=== PATIENT | male | born 1930 | race Caucasian/White ===

== ENCOUNTER 2017-07-30 15:20 | Emergency (ER) | payer MEDICARE, OTHER ==
--- NOTE | 2017-07-30 15:46 | EDM.PDOC ---
ED HPI GENERAL MEDICAL PROBLEM - General Chief Complaint: Head Injury Stated Complaint: head injury Time Seen by Provider: 07/30/17 15:20 Source of Information: Reports: Patient, Family History Limitations: Reports: Altered Mental Status - History of Present Illness INITIAL COMMENTS - FREE TEXT/NARRATIVE: 87 y.o.w.m with a h/o dizziness came the the ed after he fell out of his wheelchair, which broke. Pt complaint about a light tender post kelley. No N/V/ D. Pt is a poor historian. No family member is in the room. No other acute medical issues at this time. 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 ) Improves with: Reports: Rest Worsens with: Reports: Movement Context: Reports: Other (was dizzy before he fell) Headache Pain Score (Numeric/FACES): 5 - Related Data Allergies Allergy/AdvReac Type Severity Reaction Status Date / Time No Known Allergies Allergy Verified 07/30/17 15:39 Home Meds: Home Meds Levothyroxine 175 mcg PO ACBRK 09/20/16 [History] Metoprolol Succinate 50 mg PO DAILY 09/20/16 [History] amLODIPine [Norvasc] 10 mg PO BEDTIME 09/20/16 [History] atorvaSTATin [Lipitor] 10 mg PO BEDTIME 09/20/16 [History] Meclizine [Antivert] 25 mg PO Q6H PRN #20 tab.chew 07/30/17 [Rx] Past Medical History HEENT History: Reports: Cataract Cardiovascular History: Reports: [place] - Past Surgical History HEENT Surgical History: Reports: Cataract Surgery Social & Family History - Tobacco Use Smoking Status *Q: Never Smoker Used Tobacco, but Quit: Yes Month Tobacco Last Used: nov Second Hand Smoke Exposure: No - Caffeine Use Caffeine Use: Reports: Coffee - Alcohol Use Days Per Week of Alcohol Use: 7 Number of Drinks Per Day: 3 Total Drinks Per Week: 21 - Recreational Drug Use Recreational Drug Use: No ED ROS GENERAL - Review of Systems Review Of Systems: See Below Constitutional: Reports: No Symptoms HEENT: Reports: No Symptoms Respiratory: Reports: No Symptoms Cardiovascular: Reports: No Symptoms Endocrine: Reports: No Symptoms GI/Abdominal: Reports: No Symptoms : Reports: No Symptoms Musculoskeletal: Reports: No Symptoms Skin: Reports: No Symptoms Neurological: Reports: Dizziness Psychiatric: Reports: No Symptoms Hematologic/Lymphatic: Reports: No Symptoms Immunologic: Reports: No Symptoms ED EXAM, HEAD INJURY - Physical Exam Exam: See Below Exam Limited By: Altered Mental Status General Appearance: Alert, WD/WN, Mild Distress Head: Scalp Tenderness (posteriorly) Eyes: Bilateral Eye: Normal Inspection Ears: Normal External Exam Nose: Normal Inspection Throat/Mouth: Normal Inspection, Normal Lips Neck: Non-Tender, Full Range of Motion, Normal Alignment, Normal Inspection Respiratory: No Respiratory Distress, Lungs Clear Cardiovascular: Normal Peripheral Pulses, Regular Rate, Rhythm GI/Abdominal Exam: Normal Bowel Sounds (Male) Exam: Deferred Rectal (Males) Exam: Deferred Back Exam: Normal Inspection Extremities: Normal Inspection, Normal Range of Motion 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 Pt complaint about a light tender post kelley. No N/V/ D. Pt is a poor historian. No family member is in the room. No other acute medical issues at this time. BP 146/76 HR 111 Pulse ox 100 RR 16 Temp 35.6 Pt' s this year. PE: WNWD WM, NAD with post kelley tenderness and bilat Nystagmus Imaging: Head gen atrophy, no bleed Labs: WBC 8.7 HGB 14.4 Na 133 K 3.2 BUN 24 Cr. 1.4 INR 1.03 UA neg Impression: Hypokalemia, CRI, Gen brain atrophy. Vertigo Tx: Antivert Reexam: Pt was ambulating fine in the ed. Pt's Granddaughter arrived. Plan: D/C with instructions Last Recorded V/S: Last Vital Signs Temp 35.9 C 07/30/17 15:41 Pulse 82 07/30/17 19:19 Resp 20 07/30/17 19:19 BP 135/92 H 07/30/17 19:19 Pulse Ox 100 07/30/17 19:19 - Orders/Labs/Meds Orders: Active Orders 24 hr Category Date Time Status EKG Documentation Completion [RC] ASDIRECTED Care 07/30/17 16:15 Active CDIFF TOXIN A+B GROUP [OP] Stat Lab 07/30/17 19:07 Received CULTURE-STOOL [MREF] Stat Lab 07/30/17 19:07 Received HELICOBACTER PYLORI AG, STOOL [REF] Stat Lab 07/30/17 19:07 Received STOOL PH [MREF] Stat Lab 07/30/17 19:07 Received STOOL REDUCING SUBSTANCES [MREF] Stat Lab 07/30/17 19:07 Received WBC, Stool Send Out [LACTOFERRIN, FECAL BY CASTILLO] [REF Lab 07/30/17 19:07 Received ] Stat EKG 12 Lead [EK] Routine Ther 07/30/17 16:14 Ordered Labs: Laboratory Tests 07/30/17 07/30/17 07/30/17 Range/Units 15:50 15:50 15:50 WBC 9.7 (4.5-12.0) X10-3/uL RBC 4.36 (4.30-5.75) x10(6)uL Hgb 14.4 (11.5-15.5) g/dL Hct 41.9 (30.0-51.3) % MCV 96.2 H (80-96) fL MCH 33.0 (27.7-33.6) pg MCHC 34.3 (32.2-35.4) g/dL RDW 12.6 (11.5-15.5) % Plt Count 201 (125-369) X10(3)uL MPV 7.1 L (7.4-10.4) fL Add Manual Diff Yes Neutrophils % (Manual) 71 (46-82) % Band Neutrophils % 8 H (0-6) % Lymphocytes % (Manual) 11 L (13-37) % Monocytes % (Manual) 10 (4-12) % PT 10.4 (8.7-11.1) INR 1.03 (0.89-1.13) Sodium 134 L (135-145) mmol/L Potassium 3.2 L (3.5-5.3) mmol/L Chloride 103 (100-110) mmol/L Carbon Dioxide 22 L (23-29) mmol/L BUN 24 H (8-23) mg/dL Creatinine 1.4 H (0.6-1.3) mg/dL Est Cr Clr Drug Dosing 35.41 mL/min Estimated GFR (MDRD) 48 L (>60) BUN/Creatinine Ratio 17.1 (9-20) Glucose 129 H (80-116) mg/dL Calcium 9.0 (8.6-10.2) mg/dL Urine Color (YELLOW) Urine Appearance (CLEAR) Urine pH (5.0-6.5) Ur Specific [place] (1.010-1.025) Urine Protein (NEGATIVE) mg/dL Urine Glucose (UA) (NEGATIVE) mg/dL Urine Ketones (NEGATIVE) mg/dL Urine Occult Blood (NEGATIVE) Urine Nitrite (NEGATIVE) Urine Bilirubin (NEGATIVE) Urine Urobilinogen (NEGATIVE) mg/dL Ur Leukocyte Esterase (NEGATIVE) Urine RBC (0) Urine WBC (0) Ur Squamous Epith Cells (NS,R,O) Urine Bacteria (NS) Hyaline Casts (NS) Urine Mucus (NS) Urine Sperm (NS) 07/30/17 Range/Units 18:20 WBC (4.5-12.0) X10-3/uL RBC (4.30-5.75) x10(6)uL Hgb (11.5-15.5) g/dL Hct (30.0-51.3) % MCV (80-96) fL MCH (27.7-33.6) pg MCHC (32.2-35.4) g/dL RDW (11.5-15.5) % Plt Count (125-369) X10(3)uL MPV (7.4-10.4) fL Add Manual Diff Neutrophils % (Manual) (46-82) % Band Neutrophils % (0-6) % Lymphocytes % (Manual) (13-37) % Monocytes % (Manual) (4-12) % PT (8.7-11.1) INR (0.89-1.13) Sodium (135-145) mmol/L Potassium (3.5-5.3) mmol/L Chloride (100-110) mmol/L Carbon Dioxide (23-29) mmol/L BUN (8-23) mg/dL Creatinine (0.6-1.3) mg/dL Est Cr Clr Drug Dosing mL/min Estimated GFR (MDRD) (>60) BUN/Creatinine Ratio (9-20) Glucose (80-116) mg/dL Calcium (8.6-10.2) mg/dL Urine Color Yellow (YELLOW) Urine Appearance Clear (CLEAR) Urine pH 5.0 (5.0-6.5) Ur Specific [place] 1.020 (1.010-1.025) Urine Protein Negative (NEGATIVE) mg/dL Urine Glucose (UA) Normal (NEGATIVE) mg/dL Urine Ketones 50 H (NEGATIVE) mg/dL Urine Occult Blood Moderate H (NEGATIVE) Urine Nitrite Negative (NEGATIVE) Urine Bilirubin Negative (NEGATIVE) Urine Urobilinogen Normal (NEGATIVE) mg/dL Ur Leukocyte Esterase Negative (NEGATIVE) Urine RBC 5-10 (0) Urine WBC 0-5 (0) Ur Squamous Epith Cells Moderate H (NS,R,O) Urine Bacteria Moderate H (NS) Hyaline Casts Moderate H (NS) Urine Mucus Moderate H (NS) Urine Sperm Moderate H (NS) Meds: Medications Discontinued Medications Generic Name Dose Route Start Last Admin Trade Name Freq PRN Reason Stop Dose Admin Meclizine HCl 50 mg 07/30/17 19:01 07/30/17 19:14 Antivert PO 07/30/17 19:02 50 mg ONETIME STA Administration Departure - Departure Time of Disposition: 19:14 Disposition: Home, Self-Care 01 Condition: Good Clinical Impression: Vertigo Fall Qualifiers: Encounter type: initial encounter Qualified Code(s): W19.XXXA - Unspecified fall, initial encounter Frequent loose stools Qualifiers: Diarrhea type: presumed infectious Qualified Code(s): A09 - Infectious gastroenteritis and colitis, unspecified - Discharge Information Prescriptions: Meclizine [Antivert] 25 mg PO Q6H PRN #20 tab.chew PRN Reason: dizzy Referrals: Kel Goldstein MD [Primary Care Provider] - Forms: ED Department Discharge Additional Instructions: Please take antivert for dizziness, Imodium for constipation, please increase water intake, please follow up in 4-5 days with your PMD, please come back if your symptoms get worse acutely - My Orders Last 24 Hours: My Active Orders 07/30/17 16:14 EKG 12 Lead [EK] Routine 07/30/17 16:15 EKG Documentation Completion [RC] ASDIRECTED 07/30/17 19:07 CDIFF TOXIN A+B GROUP [OP] Stat CULTURE-STOOL [MREF] Stat HELICOBACTER PYLORI AG, STOOL [REF] Stat STOOL PH [MREF] Stat STOOL REDUCING SUBSTANCES [MREF] Stat WBC, Stool Send Out [LACTOFERRIN, FECAL BY CASTILLO] [REF] Stat - Assessment/Plan Last 24 Hours: My Active Orders 07/30/17 16:14 EKG 12 Lead [EK] Routine 07/30/17 16:15 EKG Documentation Completion [RC] ASDIRECTED 07/30/17 19:07 CDIFF TOXIN A+B GROUP [OP] Stat CULTURE-STOOL [MREF] Stat HELICOBACTER PYLORI AG, STOOL [REF] Stat STOOL PH [MREF] Stat STOOL REDUCING SUBSTANCES [MREF] Stat WBC, Stool Send Out [LACTOFERRIN, FECAL BY CASTILLO] [REF] Stat
[2017-07-30] MEDS ORDERED: Meclizine 25 MG Tab PO STA (19:01)
[2017-07-30 19:20] VITALS: BP 135/92
--- NOTE | 2017-07-31 09:14 | CT ---
INDICATION: Fell, hit back of head due to dizziness. CT HEAD WITHOUT CONTRAST: Serial contiguous 2.5 and 5-mm sections were obtained through the brain without contrast 07/30/2017 and compared with 2015. Total Exam DLP = 949.36 mGy-cm. Extensive arterial calcifications are noted in the vertebral, basilar, and internal carotid arteries. 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 Calcifications are noted in the basal ganglial area, most likely not important clinically. While there is no shift of midline structures, there is increased prominence of the lateral and third ventricles, compatible with progressive central atrophy. There are some minimal periventricular areas of decreased density, compatible with mild microvascular disease. An additional low-density abnormality is seen in the right frontal white matter, likely due to minimal subcortical infarct also. No evidence of a bleeding site or hematoma was identified. There are again noted some areas of thickening of linings and/or partial opacification and ethmoidal air cells, especially on the left, unchanged and likely due to retention cysts or other minimal chronic disease. No finding to suggest acute sinusitis was seen. The mastoid air cells were well aerated. Degenerative changes are noted at the atlantoodontoid joint. No cranial fracture site was seen. IMPRESSION: 1. No acute intracranial abnormality. 2. Cerebrovascular disease with arterial calcifications. 3. Progressive central atrophy. 4. Minimal microvascular disease type changes in the white matter, although other cause of leukoencephalopathy cannot be excluded. 5. Appearance of cerebellar atrophy, especially on the right with an area of what appears to be encephalomalacia on the right. 6. Minimal findings in the ethmoidal air cells, likely not of clinical significance. Report called to Dr. Marks on 07/30/2017 at 1625 hours. [facility]
--- NOTE | 2017-07-31 09:19 | CT ---
INDICATION: Fell, hit back of head due to dizziness. CT NECK: Spiral 2.5-mm axial sections were obtained through the cervical spine with sagittal and coronal reconstructions. The apical lungs visualized showed no definite active infiltrate or effusion. Total Exam DLP = 448.65 mGy-cm. Degenerative changes are noted at the atlantoodontoid joint and appear moderately severe to severe. Demineralization is suggested, compatible with osteoporosis or osteomalacia and should be correlated clinically. Evidence of degenerative disk disease is noted with minimal anterolisthesis at C3-4, more severe degenerative disk disease is noted at C4-5, and then even more severe at C5-6 and C6-7 to a slightly lesser degree than C5-6. Impingement on the neural foramina is suggested at C3-4, C4-5, C5-6, and C6-7. A definite acute fracture or dislocation was not identified, with the odontoid appearing intact and also the atlas and axis appearing intact. Prevertebral space appears to be normal. Hypertrophic degenerative changes are noted at the lateral masses, most prominently on the right at C3-4 and to a lesser extent at C3-4 on the left, and then more prominently at C4-5, especially on the left. Changes are also noted at the lateral masses of C5-6 and relatively minimally at C6-7. By far the most severe lateral mass degenerative hypertrophic changes are noted at C4- 5 on the left. IMPRESSION: Degenerative changes and disk disease, possible osteoporosis, no fracture or dislocation. Report was called to Dr. Marks at 1625 hours, 07/30/2017. [facility]
== END 2017-07-30 19:20 | disposition home or self-care (01) ==
LOC: FB.ED 15:20
DX: R42 Dizziness and giddiness (principal); E87.6 Hypokalemia; G31.9 Degenerative disease of nervous system, unspecified; R19.7 Diarrhea, unspecified; Z87.891 Personal history of nicotine dependence; Z79.899 Other long term (current) drug therapy; W05.0XXA Fall from non-moving wheelchair, initial encounter
CPT/HCPCS: 36415; 70450; 72125; 80048; 81001; 83630; 83986; 84376; 85025; 85610; 87015; 87045; 87046; 87324; 87338; 87899; 93005; 99284; A9270

== ENCOUNTER 2017-09-02 19:51 | Inpatient (IN) | payer MEDICARE, OTHER ==
--- NOTE | 2017-09-02 20:01 | EDM.PDOC ---
ED HPI GENERAL MEDICAL PROBLEM - General Chief Complaint: Chest Pain Stated Complaint: CHEST PAIN Time Seen by Provider: 09/02/17 19:51 Source of Information: Reports: Patient, EMS History Limitations: Reports: Intoxication - History of Present Illness INITIAL COMMENTS - FREE TEXT/NARRATIVE: 87 years old w m, came to the ed due to chest pain and a rapid heart rate. As the EMS arrived at the scene, pt had a SVT with a rate of 160 BPM. 6 mg of adenosin were given and the pt converted to NSR on arrival to the ed. CP subsided on arrival to to the ed. No N/V/D, pt is a poor historian, no family member is present. Pt denied any other acute medical issues. BP 127/67 Pulse 109 RR 17 Pulse ox 96% on RA. 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 Pain Score (Numeric/FACES): 0 - Related Data Allergies Allergy/AdvReac Type Severity Reaction Status Date / Time No Known Allergies Allergy Verified 09/02/17 20:02 Home Meds: Home Meds Metoprolol Succinate 50 mg PO BEDTIME 09/20/16 [History] Isosorbide Mononitrate [Isosorbide Mononitrate ER] 60 mg PO BEDTIME 09/02/17 [ History] amLODIPine Besylate/Benazepril [Amlodipine-Benazepril 10-20 MG] 1 cap PO BEDTIME 09/02/17 [History] Levothyroxine 175 mcg PO BEDTIME 09/03/17 [History] Past Medical History HEENT History: Reports: Cataract Other HEENT History: wears glasses Cardiovascular History: Reports: [place] Genitourinary History: Reports: Prostate Disorder Endocrine/Metabolic History: Reports: Other (See Below) Other Endocrine/Metabolic History: takes thyroid pill Oncologic (Cancer) History: Reports: Prostate - Infectious Disease History Infectious Disease History: Reports: Chicken Pox, Measles, Mumps - Past Surgical History HEENT Surgical History: Reports: Cataract Surgery Social & Family History - Tobacco Use Smoking Status *Q: Never Smoker Used Tobacco, but Quit: Yes Month Tobacco Last Used: nov Second Hand Smoke Exposure: No - Caffeine Use Caffeine Use: Reports: Coffee - Alcohol Use Days Per Week of Alcohol Use: 7 Number of Drinks Per Day: 3 Total Drinks Per Week: 21 - Recreational Drug Use Recreational Drug Use: No ED ROS GENERAL - Review of Systems Review Of Systems: Unable To Obtain (intoxicated) ED EXAM, GENERAL - Physical Exam Exam: See Below Exam Limited By: Intoxication General Appearance: Alert, WD/WN, Mild Distress Eye Exam: Bilateral Eye: Normal Inspection Ears: Normal External Exam Ear Exam: Bilateral Ear: Auricle Normal Nose: Normal Inspection, Other (dry mucosal membrane) Throat/Mouth: Normal Inspection, Normal Lips, No Airway Compromise, Other (dry mucosal membrane) Head: Atraumatic, Normocephalic Neck: Normal Inspection, Supple, Non-Tender, Full Range of Motion Respiratory/Chest: No Respiratory Distress, Lungs Clear, Normal Breath Sounds, Other (intermittand dry cough) Cardiovascular: Normal Peripheral Pulses GI/Abdominal: Normal Bowel Sounds (Male) Exam: Deferred Rectal (Males) Exam: Deferred Back Exam: Normal Inspection Extremities: Normal Inspection, Normal Range of Motion, Non-Tender, No Pedal Edema Neurological: Alert, Oriented, CN II-XII Intact, Normal Cognition, Normal Gait Psychiatric: Normal Affect, Depressed Mood (is crying off/on) Skin Exam: Warm, Dry, Intact, Normal Color, No Rash Lymphatic: No Adenopathy EKG INTERPRETATION EKG Date: 09/02/17 Time: 20:10 Rhythm: NSR Rate (Beats/Min): 108 [place]: Normal P-Wave: Present QRS: Normal ST-T: Normal QT: Prolonged (523) Comparison: NA - No Prior EKG Course - Vital Signs Text/Narrative:: 87 years old w m, came to the ed due to chest pain and a rapid heart rate. As the EMS arrived at the scene, pt had a SVT with a rate of 160 BPM. 6 mg of adenosin were given and the pt converted to NSR on arrival to the ed. CP subsided on arrival to to the ed. No N/V/D, pt is a poor historian, no family member is present. Pt denied any other acute medical issues. BP 127/67 Pulse 109 RR 17 Pulse ox 96% on RA. PE: WNWD W M NAD Dry mucosal membranes Labs: WBC 17K Mg 1.5 Troponin Nl, TSH 0.19 (low) BNP 1200 ECG: Prolonged QT interval Imaging: CXR NADm, no CHF, official report is pending Impression: SVT (converted to NSR BAGGAGE PORTER with Adenosin 6MG) Hyperthyroidism, WBC elevated (no left shift, NL lactic acid)), BNP elevated (not in CHF), prolonged QT interval (525). Hypomagnesemia. Tx: ASA, Levothyrid, NS, Mg. 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 Sheehan: Accepted the patient for admission to to M/ S tele Plan: Admit to [facility] Last Recorded V/S: Last Vital Signs Temp 36.4 C 09/03/17 15:55 Pulse 73 09/03/17 15:55 Resp 18 09/03/17 15:55 BP 158/67 H 09/03/17 15:55 Pulse Ox 100 09/03/17 15:55 - Orders/Labs/Meds Orders: Active Orders 24 hr Category Date Time Status Patient Status [ADT] Routine ADT 09/02/17 21:52 Active Intake and Output [RC] 06,14,22 Care 09/02/17 21:55 Active Oxygen Therapy [RC] PRN Care 09/02/17 21:52 Active Up With Assistance [RC] ASDIRECTED Care 09/02/17 21:52 Active Vital Signs [RC] 04,08,12,16,20,00 Care 09/02/17 21:52 Active CULTURE BLOOD [BC] Stat Lab 09/02/17 20:56 Received Isosorbide Mononitrate [Imdur] Med 09/03/17 21:00 Active 60 mg PO BEDTIME Metoprolol Succinate [Toprol XL] Med 09/03/17 21:00 Active 50 mg PO BEDTIME Sodium Chloride 0.9% [Normal Saline] 1,000 ml Med 09/02/17 20:15 Active IV ASDIRECTED Sodium Chloride 0.9% [Saline Flush] Med 09/02/17 20:01 Active 10 ml FLUSH ASDIRECTED PRN Vancomycin [Vancocin 125 MG/5 ML Soln] Med 09/03/17 09:00 Active 125 mg PO QID Peripheral IV Insertion Adult [OM.PC] Routine Oth 09/02/17 20:01 Ordered Resuscitation Status Routine Resus Stat 09/02/17 21:52 Ordered EKG 12 Lead [EK] Routine Ther 09/02/17 20:01 Ordered EKG 12 Lead [EK] Routine Ther 09/03/17 08:22 Ordered Medication Orders Amlodipine Besylate (Norvasc) 10 mg PO BEDTIME [facility] Aspirin (Ecotrin) 325 mg PO DAILY NATHEN Last Admin: 09/03/17 13:06 Dose: 325 mg Benazepril HCl (Lotensin) 20 mg PO BEDTIME [facility] Sodium Chloride (Normal Saline) 1,000 mls @ 125 mls/hr IV ASDIRECTED NATHEN Last Admin: 09/03/17 12:38 Dose: 125 mls/hr Infusion: 09/03/17 12:38 Dose: 125 mls/hr Admin: 09/03/17 04:47 Dose: 125 mls/hr Infusion: 09/03/17 04:16 Dose: 125 mls/hr Admin: 09/02/17 20:16 Dose: 125 mls/hr Isosorbide Mononitrate (Imdur) 60 mg PO BEDTIME [facility] Metoprolol Succinate (Toprol Xl) 50 mg PO BEDTIME [facility] Sodium Chloride (Saline Flush) 10 ml FLUSH ASDIRECTED PRN PRN Reason: Keep Vein Open Last Admin: 09/03/17 09:50 Dose: 10 ml Admin: 09/03/17 07:35 Dose: 10 ml Vancomycin HCl (Vancocin 125 Mg/5 Ml Soln) 125 mg PO QID [facility] Last Admin: 09/03/17 16:53 Dose: 125 mg Admin: 09/03/17 12:45 Dose: 125 mg Admin: 09/03/17 10:06 Dose: 125 mg Labs: Laboratory Tests 09/02/17 09/02/17 09/02/17 Range/Units 20:15 20:15 20:15 WBC 17.7 H (4.5-12.0) X10-3/uL RBC 4.13 L (4.30-5.75) x10(6)uL Hgb 14.1 (11.5-15.5) g/dL Hct 39.8 (30.0-51.3) % MCV 96.5 H (80-96) fL MCH 34.1 H (27.7-33.6) pg MCHC 35.4 (32.2-35.4) g/dL RDW 13.4 (11.5-15.5) % Plt Count 176 (125-369) X10(3)uL MPV 7.4 (7.4-10.4) fL Neut % (Auto) (46-82) % Lymph % (Auto) (13-37) % [place] % (Auto) (4-12) % Eos % (Auto) (1.0-5.0) % Baso % (Auto) (0-2) % Neut # (Auto) (1.6-8.3) # Lymph # (Auto) (0.6-5.0) # [place] # (Auto) (0.0-1.3) # Eos # (Auto) (0.0-0.8) # Baso # (Auto) (0.0-0.2) # Add Manual Diff Yes Neutrophils % (Manual) 76 (46-82) % Band Neutrophils % 5 (0-6) % Lymphocytes % (Manual) 9 L (13-37) % Monocytes % (Manual) 10 (4-12) % PT 10.5 (8.7-11.1) INR 1.04 (0.89-1.13) Sodium 136 (135-145) mmol/L Potassium 3.7 (3.5-5.3) mmol/L Chloride 102 (100-110) mmol/L Carbon Dioxide 23 (21-32) mmol/L BUN 17 (7-18) mg/dL Creatinine 1.1 (0.70-1.30) mg/dL Est Cr Clr Drug Dosing 43.50 mL/min Estimated GFR (MDRD) > 60 (>60) BUN/Creatinine Ratio 15.5 (9-20) Glucose 136 H (80-116) mg/dL Lactic Acid (0.4-2.2) mmol/L Calcium 8.7 (8.6-10.2) mg/dL Magnesium (1.8-2.5) mg/dL Troponin I (<0.017-0.056) ng/mL NT-Pro-B Natriuret Pep (<=450) pg/mL TSH, Ultra Sensitive (0.36-3.74) IU/mL Urine Color (YELLOW) Urine Appearance (CLEAR) Urine pH (5.0-6.5) Ur Specific [place] (1.010-1.025) Urine Protein (NEGATIVE) mg/dL Urine Glucose (UA) (NEGATIVE) mg/dL Urine Ketones (NEGATIVE) mg/dL Urine Occult Blood (NEGATIVE) Urine Nitrite (NEGATIVE) Urine Bilirubin (NEGATIVE) Urine Urobilinogen (NEGATIVE) mg/dL Ur Leukocyte Esterase (NEGATIVE) 09/02/17 09/02/17 09/02/17 Range/Units 20:15 20:15 20:15 WBC (4.5-12.0) X10-3/uL RBC (4.30-5.75) x10(6)uL Hgb (11.5-15.5) g/dL Hct (30.0-51.3) % MCV (80-96) fL MCH (27.7-33.6) pg MCHC (32.2-35.4) g/dL RDW (11.5-15.5) % Plt Count (125-369) X10(3)uL MPV (7.4-10.4) fL Neut % (Auto) (46-82) % Lymph % (Auto) (13-37) % [place] % (Auto) (4-12) % Eos % (Auto) (1.0-5.0) % Baso % (Auto) (0-2) % Neut # (Auto) (1.6-8.3) # Lymph # (Auto) (0.6-5.0) # [place] # (Auto) (0.0-1.3) # Eos # (Auto) (0.0-0.8) # Baso # (Auto) (0.0-0.2) # Add Manual Diff Neutrophils % (Manual) (46-82) % Band Neutrophils % (0-6) % Lymphocytes % (Manual) (13-37) % Monocytes % (Manual) (4-12) % PT (8.7-11.1) INR (0.89-1.13) Sodium (135-145) mmol/L Potassium (3.5-5.3) mmol/L Chloride (100-110) mmol/L Carbon Dioxide (21-32) mmol/L BUN (7-18) mg/dL Creatinine (0.70-1.30) mg/dL Est Cr Clr Drug Dosing mL/min Estimated GFR (MDRD) (>60) BUN/Creatinine Ratio (9-20) Glucose (80-116) mg/dL Lactic Acid (0.4-2.2) mmol/L Calcium (8.6-10.2) mg/dL Magnesium 1.5 L (1.8-2.5) mg/dL Troponin I 0.034 (<0.017-0.056) ng/mL NT-Pro-B Natriuret Pep 1230 H* (<=450) pg/mL TSH, Ultra Sensitive 0.19 L (0.36-3.74) IU/mL Urine Color (YELLOW) Urine Appearance (CLEAR) Urine pH (5.0-6.5) Ur Specific [place] (1.010-1.025) Urine Protein (NEGATIVE) mg/dL Urine Glucose (UA) (NEGATIVE) mg/dL Urine Ketones (NEGATIVE) mg/dL Urine Occult Blood (NEGATIVE) Urine Nitrite (NEGATIVE) Urine Bilirubin (NEGATIVE) Urine Urobilinogen (NEGATIVE) mg/dL Ur Leukocyte Esterase (NEGATIVE) 09/02/17 09/03/17 09/03/17 Range/Units 20:56 00:30 08:40 WBC (4.5-12.0) X10-3/uL RBC (4.30-5.75) x10(6)uL Hgb (11.5-15.5) g/dL Hct (30.0-51.3) % MCV (80-96) fL MCH (27.7-33.6) pg MCHC (32.2-35.4) g/dL RDW (11.5-15.5) % Plt Count (125-369) X10(3)uL MPV (7.4-10.4) fL Neut % (Auto) (46-82) % Lymph % (Auto) (13-37) % [place] % (Auto) (4-12) % Eos % (Auto) (1.0-5.0) % Baso % (Auto) (0-2) % Neut # (Auto) (1.6-8.3) # Lymph # (Auto) (0.6-5.0) # [place] # (Auto) (0.0-1.3) # Eos # (Auto) (0.0-0.8) # Baso # (Auto) (0.0-0.2) # Add Manual Diff Neutrophils % (Manual) (46-82) % Band Neutrophils % (0-6) % Lymphocytes % (Manual) (13-37) % Monocytes % (Manual) (4-12) % PT (8.7-11.1) INR (0.89-1.13) Sodium (135-145) mmol/L Potassium (3.5-5.3) mmol/L Chloride (100-110) mmol/L Carbon Dioxide (21-32) mmol/L BUN (7-18) mg/dL Creatinine (0.70-1.30) mg/dL Est Cr Clr Drug Dosing mL/min Estimated GFR (MDRD) (>60) BUN/Creatinine Ratio (9-20) Glucose (80-116) mg/dL Lactic Acid 1.5 (0.4-2.2) mmol/L Calcium (8.6-10.2) mg/dL Magnesium 2.1 (1.8-2.5) mg/dL Troponin I (<0.017-0.056) ng/mL NT-Pro-B Natriuret Pep (<=450) pg/mL TSH, Ultra Sensitive (0.36-3.74) IU/mL Urine Color Yellow (YELLOW) Urine Appearance Cloudy (CLEAR) Urine pH 5.0 (5.0-6.5) Ur Specific [place] 1.020 (1.010-1.025) Urine Protein 30 H (NEGATIVE) mg/dL Urine Glucose (UA) Normal (NEGATIVE) mg/dL Urine Ketones 15 H (NEGATIVE) mg/dL Urine Occult Blood Moderate H (NEGATIVE) Urine Nitrite Negative (NEGATIVE) Urine Bilirubin Small H (NEGATIVE) Urine Urobilinogen Normal (NEGATIVE) mg/dL Ur Leukocyte Esterase Negative (NEGATIVE) 09/03/17 09/03/17 09/03/17 Range/Units 08:40 08:40 08:40 WBC 13.4 H (4.5-12.0) X10-3/uL RBC 4.11 L (4.30-5.75) x10(6)uL Hgb 13.5 (11.5-15.5) g/dL Hct 39.1 (30.0-51.3) % MCV 95.0 (80-96) fL MCH 32.8 (27.7-33.6) pg MCHC 34.5 (32.2-35.4) g/dL RDW 13.2 (11.5-15.5) % Plt Count 144 (125-369) X10(3)uL MPV 7.7 (7.4-10.4) fL Neut % (Auto) 80.4 (46-82) % Lymph % (Auto) 8.9 L (13-37) % [place] % (Auto) 8.7 (4-12) % Eos % (Auto) 1 (1.0-5.0) % Baso % (Auto) 1 (0-2) % Neut # (Auto) 10.8 H (1.6-8.3) # Lymph # (Auto) 1.2 (0.6-5.0) # [place] # (Auto) 1.2 (0.0-1.3) # Eos # (Auto) 0.1 (0.0-0.8) # Baso # (Auto) 0.1 (0.0-0.2) # Add Manual Diff Neutrophils % (Manual) (46-82) % Band Neutrophils % (0-6) % Lymphocytes % (Manual) (13-37) % Monocytes % (Manual) (4-12) % PT (8.7-11.1) INR (0.89-1.13) Sodium 133 L (135-145) mmol/L Potassium 3.7 (3.5-5.3) mmol/L Chloride 104 (100-110) mmol/L Carbon Dioxide 20 L (21-32) mmol/L BUN 16 (7-18) mg/dL Creatinine 1.1 (0.70-1.30) mg/dL Est Cr Clr Drug Dosing 43.50 mL/min Estimated GFR (MDRD) > 60 (>60) BUN/Creatinine Ratio 14.5 (9-20) Glucose 189 H (80-116) mg/dL Lactic Acid (0.4-2.2) mmol/L Calcium 8.5 L (8.6-10.2) mg/dL Magnesium (1.8-2.5) mg/dL Troponin I 0.836 H* (<0.017-0.056) ng/mL NT-Pro-B Natriuret Pep (<=450) pg/mL TSH, Ultra Sensitive (0.36-3.74) IU/mL Urine Color (YELLOW) Urine Appearance (CLEAR) Urine pH (5.0-6.5) Ur Specific [place] (1.010-1.025) Urine Protein (NEGATIVE) mg/dL Urine Glucose (UA) (NEGATIVE) mg/dL Urine Ketones (NEGATIVE) mg/dL Urine Occult Blood (NEGATIVE) Urine Nitrite (NEGATIVE) Urine Bilirubin (NEGATIVE) Urine Urobilinogen (NEGATIVE) mg/dL Ur Leukocyte Esterase (NEGATIVE) Meds: Medications Generic Name Dose Route Start Last Admin Trade Name Freq PRN Reason Stop Dose Admin Amlodipine Besylate 10 mg 09/03/17 21:00 Norvasc PO BEDTIME NATHEN Aspirin 325 mg 09/03/17 13:00 09/03/17 13:06 Ecotrin PO 325 mg DAILY NATHEN Administration Benazepril HCl 20 mg 09/03/17 21:00 Lotensin PO BEDTIME NATHEN Sodium Chloride 1,000 mls @ 125 mls/hr 09/02/17 20:15 09/03/17 12:38 Normal Saline IV 125 mls/hr ASDIRECTED NATHEN Administration Isosorbide Mononitrate 60 mg 09/03/17 21:00 Imdur PO BEDTIME NATHEN Metoprolol Succinate 50 mg 09/03/17 21:00 Toprol Xl PO BEDTIME NATHEN Sodium Chloride 10 ml 09/02/17 20:01 09/03/17 09:50 Saline Flush FLUSH 10 ml ASDIRECTED PRN Administration Keep Vein Open Vancomycin HCl 125 mg 09/03/17 09:00 09/03/17 16:53 Vancocin 125 Mg/5 Ml Soln PO 125 mg QID NATHEN Administration Discontinued Medications Generic Name Dose Route Start Last Admin Trade Name Freq PRN Reason Stop Dose Admin Aspirin 325 mg 09/02/17 21:09 09/02/17 21:51 Aspirin PO 09/02/17 21:10 Not Given ONETIME ONE Aspirin 324 mg 09/02/17 21:52 09/02/17 21:57 Aspirin PO 09/02/17 21:53 324 mg ONETIME ONE Administration Clopidogrel Bisulfate 600 mg 09/03/17 12:46 09/03/17 13:06 Plavix PO 09/03/17 12:47 600 mg ONETIME ONE Administration Magnesium Sulfate 2 gm/ Premix 50 mls @ 150 mls/hr 09/02/17 22:19 09/02/17 23 :34 IV 09/02/17 22:38 50 mls/hr ONETIME ONE Administration Levothyroxine Sodium 175 mcg 09/02/17 21:17 09/02/17 22:03 Levothyroxine PO 09/02/17 21:18 Not Given ONETIME STA Levothyroxine Sodium Confirm 09/02/17 21:50 09/02/17 21:57 Synthroid Administered 09/02/17 21:51 Not Given Dose 100 mcg .ROUTE .STK-MED ONE Levothyroxine Sodium Confirm 09/02/17 21:50 09/02/17 21:57 Levothyroxine Administered 09/02/17 21:51 Not Given Dose 75 mcg .ROUTE .STK-MED ONE Levothyroxine Sodium 75 mcg 09/02/17 22:02 09/02/17 22:03 Levothyroxine PO 09/02/17 22:03 75 mcg ONETIME ONE Administration Levothyroxine Sodium 100 mcg 09/02/17 22:02 09/02/17 22:03 Synthroid PO 09/02/17 22:03 100 mcg ONETIME ONE Administration Non-Formulary Medication 1 cap 09/03/17 09:00 Amlodipine Besylate/Benazepril [Amlodipine-Benazepril 10-20 Mg] PO DAILY NATHEN Departure - Departure Time of Disposition: 20:00 Disposition: Refer to Observation Condition: Fair Clinical Impression: SVT (supraventricular tachycardia), Low magnesium level, Dehydration - My Orders Last 24 Hours: My Active Orders 09/02/17 20:01 Sodium Chloride 0.9% [Saline Flush] 10 ml FLUSH ASDIRECTED PRN Peripheral IV Insertion Adult [OM.PC] Routine EKG 12 Lead [EK] Routine 09/02/17 20:15 Sodium Chloride 0.9% [Normal Saline] 1,000 ml IV ASDIRECTED 09/02/17 20:56 CULTURE BLOOD [BC] Stat 09/02/17 21:52 Patient Status [ADT] Routine Oxygen Therapy [RC] PRN Up With Assistance [RC] ASDIRECTED Vital Signs [RC] 04,08,12,16,20,00 Resuscitation Status Routine 09/02/17 21:55 Intake and Output [RC] 06,14,22 - Assessment/Plan Last 24 Hours: My Active Orders 09/02/17 20:01 Sodium Chloride 0.9% [Saline Flush] 10 ml FLUSH ASDIRECTED PRN Peripheral IV Insertion Adult [OM.PC] Routine EKG 12 Lead [EK] Routine 09/02/17 20:15 Sodium Chloride 0.9% [Normal Saline] 1,000 ml IV ASDIRECTED 09/02/17 20:56 CULTURE BLOOD [BC] Stat 09/02/17 21:52 Patient Status [ADT] Routine Oxygen Therapy [RC] PRN Up With Assistance [RC] ASDIRECTED Vital Signs [RC] 04,08,12,16,20,00 Resuscitation Status Routine 09/02/17 21:55 Intake and Output [RC] 06,14,22
[2017-09-02] MEDS: Sodium Chloride 0.9% 1,000 ML IV SCH (20:16)
[2017-09-02] MEDS ORDERED: Aspirin 325 MG Tab PO ONE (21:09)
[2017-09-02] MEDS ORDERED: Levothyroxine 75 MCG Tab ONE (21:50)
[2017-09-02] MEDS ORDERED: Levothyroxine 100 MCG Tab ONE (21:50)
[2017-09-02] MEDS ORDERED: Aspirin 81 MG Tab.Chew PO ONE (21:52)
[2017-09-02] MEDS ORDERED: Levothyroxine 75 MCG Tab PO ONE (22:02)
[2017-09-02] MEDS ORDERED: Levothyroxine 100 MCG Tab PO ONE (22:02)
[2017-09-02] MEDS ORDERED: Magnesium Sulfate/Water 2 GM in Premix Bag 1 BAG IV ONE (22:19)
[2017-09-03] MEDS: Sodium Chloride 0.9% 1,000 ML IV SCH ×2 (04:47→12:38)
[2017-09-03] MEDS: Sodium Chloride 0.9% 10 ML Syringe FLUSH PRN ×2 (07:35→09:50)
--- NOTE | 2017-09-03 08:23 | PCM.HP ---
H&P History of Present Illness - General Date of Service: 09/03/17 Admit Problem/Dx: Admission Diagnosis/Problem Admission Diagnosis/Problem Supraventricular tachycardia Source of Information: Patient, Old Records History Limitations: Reports: No Limitations - History of Present Illness Initial Comments - Free Text/Narative: 87-year-old male the dose protein for chest pain. His chief complaint this morning is diarrhea. He's had this for at least 3 weeks initially treated for C. difficile by [facility]. He was getting up to go to the bathroom yesterday, when he felt weak and fell, was able to pull and call for help. He was found to be in SVT upon arrival, which was treated successfully with Adenosine. He was admitted for rehydration and observation. He complains of feeling weak and having diarrhea at least every hour so mucousy loose stools without blood. He has no abdominal pain, fever or chills. He has a history of coronary disease, with coronary artery bypass grafting several years ago and is tenting 2006. In August last year he was seen for chest pain and angiogram revealed minimal coronary artery stenosis did not have any intervention at that visit. His earlier this year and he currently lives alone. Chest pain Pain Score (Numeric/FACES): 2 DENIES ANY PAIN WHEN ASKED AT PRESENT TIME. Pain Score (Numeric/FACES): 0 - Related Data Allergies/Adverse Reactions: Allergies Allergy/AdvReac Type Severity Reaction Status Date / Time No Known Allergies Allergy Verified 09/02/17 20:02 Home Medications: Home Meds Metoprolol Succinate 50 mg PO BEDTIME 09/20/16 [History] Isosorbide Mononitrate [Isosorbide Mononitrate ER] 60 mg PO BEDTIME 09/02/17 [ History] amLODIPine Besylate/Benazepril [Amlodipine-Benazepril 10-20 MG] 1 cap PO BEDTIME 09/02/17 [History] Levothyroxine 175 mcg PO BEDTIME 09/03/17 [History] Past Medical History HEENT History: Reports: Cataract Other HEENT History: wears glasses Cardiovascular History: Reports: [place], [place] Other Cardiovascular History: Quadruple Bypass Gastrointestinal History: Reports: None Genitourinary History: Reports: Prostate Disorder Psychiatric History: Reports: Depression Endocrine/Metabolic History: Reports: Other (See Below) Other Endocrine/Metabolic History: takes thyroid pill Oncologic (Cancer) History: Reports: Prostate - Infectious Disease History Infectious Disease History: Reports: Chicken Pox, Measles, Mumps - Past Surgical History HEENT Surgical History: Reports: Cataract Surgery Social & Family History - Family History Family Medical History: Noncontributory - Tobacco Use Smoking Status *Q: Never Smoker Used Tobacco, but Quit: Yes Month Tobacco Last Used: nov Second Hand Smoke Exposure: No - Caffeine Use Caffeine Use: Reports: Coffee Other Caffeine Use: 2-3 cups/day - Alcohol Use Days Per Week of Alcohol Use: 7 Number of Drinks Per Day: 3 Total Drinks Per Week: 21 - Recreational Drug Use Recreational Drug Use: No H&P Review of Systems - Review of Systems: Review Of Systems: ROS reveals no pertinent complaints other than HPI. Exam - Exam Exam: See Below - Vital Signs Vital Signs: Last Vital Signs Temp 97.3 F 09/03/17 07:35 Pulse 82 09/03/17 07:35 Resp 20 09/03/17 07:35 BP 136/62 09/03/17 07:35 Pulse Ox 95 09/03/17 07:35 Weight: 75.342 kg - Exam General: Alert, Oriented, 4 HEENT: PERRLA, Hearing Intact, Mucosa Moist & [place], Nares Patent, Normal Nasal Septum, Posterior Pharynx Clear, Conjunctiva Clear, EOMI, EACs Clear, TMs Clear Neck: Supple, Trachea Midline, 2 Lungs: Clear to Auscultation, Normal Respiratory Effort Cardiovascular: Regular Rate, Regular Rhythm GI/Abdominal Exam: Normal Bowel Sounds, Soft, Non-Tender, No Organomegaly, No Distention, No Abnormal Bruit, No Mass, Pelvis Stable (Male) Exam: No Hernia, Normal Inspection, Normal Prostate, Circumcised Rectal (Males) Exam: Normal Exam, Normal Rectal Tone, Prostate Normal Back Exam: Normal Inspection, Full Range of Motion, NT Extremities: Normal Inspection, Normal Range of Motion, Non-Tender, No Pedal Edema, Normal Capillary Refill Skin: Warm, Dry, Intact Neurological: Cranial Nerves Intact, Reflexes Equal Bilateral Neuro Extensive - Mental Status: Alert, Oriented x3, Normal Mood/Affect, Normal Cognition Neuro Extensive - Motor, Sensory, Reflexes: CN II-XII Intact, Normal Gait, Normal Reflexes Psychiatric: Alert, Normal Affect, Normal Mood - Patient Data Lab Results Last 24 hrs: Laboratory Results - last 24 hr 09/03/17 Range/Units 00:30 Urine Color Yellow (YELLOW) Urine Appearance Cloudy (CLEAR) Urine pH 5.0 (5.0-6.5) Ur Specific [place] 1.020 (1.010-1.025) Urine Protein 30 H (NEGATIVE) mg/dL Urine Glucose (UA) Normal (NEGATIVE) mg/dL Urine Ketones 15 H (NEGATIVE) mg/dL Urine Occult Blood Moderate H (NEGATIVE) Urine Nitrite Negative (NEGATIVE) Urine Bilirubin Small H (NEGATIVE) Urine Urobilinogen Normal (NEGATIVE) mg/dL Ur Leukocyte Esterase Negative (NEGATIVE) Result Diagrams: 09/03/17 08:40 09/02/17 20:15 EKG INTERPRETATION Rhythm: NSR *Q Meaningful Use (ADM) - VTE *Q VTE Criteria *Q: - Stroke *Q Stroke Criteria *Q: - AMI *Q AMI Criteria *Q: - Problem List (1) Diarrhea SNOMED Code(s): 24858475 ICD Code: R19.7 - DIARRHEA, UNSPECIFIED Status: Acute Current Visit: Yes Qualifiers: Diarrhea type: presumed infectious Qualified Code(s): A09 - Infectious gastroenteritis and colitis, unspecified (2) SVT (supraventricular tachycardia) SNOMED Code(s): 9136847 ICD Code: I47.1 - SUPRAVENTRICULAR TACHYCARDIA Status: Acute Current Visit: Yes (3) CAD (coronary artery disease) SNOMED Code(s): 66995886 ICD Code: I25.10 - ATHSCL HEART DISEASE OF [place] CORONARY ARTERY W/O ANG PCTRS Status: Acute Current Visit: Yes Qualifiers: Coronary Disease-Associated Artery/Lesion type: bypass graft (4) CKD (chronic kidney disease) SNOMED Code(s): 824646735 ICD Code: N18.9 - CHRONIC KIDNEY DISEASE, UNSPECIFIED Status: Acute Current Visit: Yes Qualifiers: Chronic kidney disease stage: stage 2 (mild) Qualified Code(s): N18.2 - Chronic kidney disease, stage 2 (mild) (5) Hypothyroid SNOMED Code(s): 68495583 ICD Code: E03.9 - HYPOTHYROIDISM, UNSPECIFIED Status: Acute Current Visit : Yes Qualifiers: Hypothyroidism type: acquired Qualified Code(s): E03.9 - Hypothyroidism, unspecified (6) HTN (hypertension) SNOMED Code(s): 07496525 ICD Code: I10 - ESSENTIAL (PRIMARY) HYPERTENSION Status: Acute Current Visit: Yes Qualifiers: Hypertension type: essential hypertension Qualified Code(s): I10 - Essential (primary) hypertension (7) Obesity SNOMED Code(s): 502627503 ICD Code: E66.9 - OBESITY, UNSPECIFIED Status: Acute Current Visit: Yes Qualifiers: Obesity type: due to excess calories (8) HLD (hyperlipidemia) SNOMED Code(s): 17438152 ICD Code: E78.5 - HYPERLIPIDEMIA, UNSPECIFIED Status: Acute Current Visit : Yes Qualifiers: Hyperlipidemia type: unspecified Qualified Code(s): E78.5 - Hyperlipidemia , unspecified Problem List Initiated/Reviewed/Updated: Yes Orders Last 24hrs: Active Orders 24 hr Category Date Time Status Patient Status [ADT] Routine ADT 09/02/17 21:52 Active Cardiac Monitoring [RC] CONTINUOUS Care 09/02/17 21:55 Active EKG Documentation Completion [RC] ASDIRECTED Care 09/03/17 08:22 Active EKG Documentation Completion [RC] ASDIRECTED Care 09/03/17 08:22 Active Intake and Output [RC] 06,14,22 Care 09/02/17 21:55 Active Oxygen Therapy [RC] PRN Care 09/02/17 21:52 Active Pulse Oximetry [RC] CONTINUOUS Care 09/02/17 21:55 Active Up With Assistance [RC] ASDIRECTED Care 09/02/17 21:52 Active Vital Signs [RC] 04,08,12,16,20,00 Care 09/02/17 21:52 Active BASIC METABOLIC PANEL,BMP [CHEM] Stat Lab 09/03/17 08:22 Ordered CBC WITH AUTO DIFF [HEME] Stat Lab 09/03/17 08:22 Ordered MAGNESIUM [CHEM] Routine Lab 09/03/17 08:22 Ordered TROPONIN I [CHEM] Stat Lab 09/03/17 08:22 Ordered Resuscitation Status Routine Resus Stat 09/02/17 21:52 Ordered EKG 12 Lead [EK] Routine Ther 09/03/17 08:22 Ordered Medication Orders Sodium Chloride (Normal Saline) 1,000 mls @ 125 mls/hr IV ASDIRECTED NATHEN Last Admin: 09/03/17 04:47 Dose: 125 mls/hr Infusion: 09/03/17 04:16 Dose: 125 mls/hr Admin: 09/02/17 20:16 Dose: 125 mls/hr Sodium Chloride (Saline Flush) 10 ml FLUSH ASDIRECTED PRN PRN Reason: Keep Vein Open Last Admin: 09/03/17 07:35 Dose: 10 ml Assessment/Plan Comment:: We'll admit the patient for rehydration, and C diff was ordered in the stool, along with stool culture, reducing substances and WBC smear. I'll plan to repeat troponin and basic profile in the morning. I will empirically start him on oral vancomycin for C. difficile colitis. I will make him an inpatient(w/o Tele) and also ask physical and occupational therapy to see him. I will restart his medication with exception of levothyroxine due to the low TSH. I spoke with his son Josh who is the POA. Josh like to see if it is possible for him to move closer to [place]. We'll continue this discussion with the family and the patient. I'll continue IV fluids through today until the diarrhea gets better. He also seemed sad and depressed. I wonder if he might benefit from a small SSRI.
[2017-09-03] MEDS ORDERED: Non-Formulary Medication 1 Each (Amlodipine Besylate/Benazepril [Amlodipine-Benazepril 10- PO SCH (09:00)
[2017-09-03] MEDS: Vancomycin 125 MG/5 ML ML Oral Solution PO SCH ×4 (10:06→21:10)
[2017-09-03] MEDS ORDERED: Clopidogrel 75 MG Tab PO ONE (12:46)
[2017-09-03] MEDS: Aspirin 325 MG Tab.EC PO SCH (13:06)
--- NOTE | 2017-09-03 13:28 | CR ---
INDICATION: Chest pain. CHEST: An AP upright portable view of the chest was obtained 09/02/2017. No comparisons. Evidence of median sternotomy is noted with sternal wire sutures. The heart did not appear enlarged. Overlying EKG leads are noted. An active infiltrate or effusion was not identified, although somewhat heavy markings are noted at the left lung base. These are likely fibrotic, but do make it difficult to exclude minimal patchy bronchopneumonia there. IMPRESSION: 1. No definite acute process, but difficult to exclude minimal patchy bronchopneumonia at the left lung base. 2. ASHD with aortic calcification and post median sternotomy. MTDD
[2017-09-03] MEDS ORDERED: Isosorbide Mononitrate 60 MG Tab.ER PO SCH (21:00)
[2017-09-03] MEDS ORDERED: Metoprolol Succinate 50 MG Tab.ER PO SCH (21:00)
[2017-09-03] MEDS ORDERED: amLODIPine 10 MG Tab PO SCH (21:00)
[2017-09-03] MEDS ORDERED: Levothyroxine 100 MCG Tab PO ONE (21:58)
[2017-09-03] MEDS ORDERED: Levothyroxine 75 MCG Tab PO ONE (21:59)
[2017-09-04 07:32] VITALS: BP 112/63
--- NOTE | 2017-09-04 08:45 | PCM.PN ---
- General Info Date of Service: 09/04/17 Subjective Update: Patient reports marked improvement of his symptoms. Is no longer week he passed physical therapy evaluation. These stools have become more formed and the only 2 overnight. He has no pain,wither in the chest or abdomen. He denies shortness of breath. - Patient Data Vitals - Most Recent: Last Vital Signs Temp 97.8 F 09/04/17 07:30 Pulse 59 L 09/04/17 07:30 Resp 20 09/04/17 07:30 BP 112/63 09/04/17 07:30 Pulse Ox 96 09/04/17 07:30 Weight - Most Recent: 75.342 kg I&O - Last 24 Hours: Intake & Output 09/03/17 09/04/17 09/04/17 22:59 06:59 14:59 Intake Total 605 200 100 Output Total 1100 0 275 Balance -495 200 -175 Lab Results Last 24 Hours: Laboratory Results - last 24 hr 09/03/17 09/03/17 09/04/17 Range/Units 18:00 18:00 06:20 WBC 7.7 (4.5-12.0) X10-3/uL RBC 3.52 L (4.30-5.75) x10(6)uL Hgb 11.9 (11.5-15.5) g/dL Hct 33.9 (30.0-51.3) % MCV 96.2 H (80-96) fL MCH 33.9 H (27.7-33.6) pg MCHC 35.2 (32.2-35.4) g/dL RDW 13.3 (11.5-15.5) % Plt Count 140 (125-369) X10(3)uL MPV 8.0 (7.4-10.4) fL Neut % (Auto) 65.4 (46-82) % Lymph % (Auto) 18.7 (13-37) % [place] % (Auto) 13.3 H (4-12) % Eos % (Auto) 2 (1.0-5.0) % Baso % (Auto) 0 (0-2) % Neut # (Auto) 5.1 (1.6-8.3) # Lymph # (Auto) 1.4 (0.6-5.0) # [place] # (Auto) 1.0 (0.0-1.3) # Eos # (Auto) 0.2 (0.0-0.8) # Baso # (Auto) 0.0 (0.0-0.2) # Sodium (135-145) mmol/L Potassium (3.5-5.3) mmol/L Chloride (100-110) mmol/L Carbon Dioxide (21-32) mmol/L BUN (7-18) mg/dL Creatinine (0.70-1.30) mg/dL Est Cr Clr Drug Dosing mL/min Estimated GFR (MDRD) (>60) BUN/Creatinine Ratio (9-20) Glucose (80-116) mg/dL Calcium (8.6-10.2) mg/dL Creatine Kinase 46 L (60-160) IU/L CK-MB (CK-2) 2.9 (0.5-5.0) ng/mL Troponin I 0.618 H* (<0.017-0.056) ng/mL 09/04/17 09/04/17 Range/Units 06:20 06:20 WBC (4.5-12.0) X10-3/uL RBC (4.30-5.75) x10(6)uL Hgb (11.5-15.5) g/dL Hct (30.0-51.3) % MCV (80-96) fL MCH (27.7-33.6) pg MCHC (32.2-35.4) g/dL RDW (11.5-15.5) % Plt Count (125-369) X10(3)uL MPV (7.4-10.4) fL Neut % (Auto) (46-82) % Lymph % (Auto) (13-37) % [place] % (Auto) (4-12) % Eos % (Auto) (1.0-5.0) % Baso % (Auto) (0-2) % Neut # (Auto) (1.6-8.3) # Lymph # (Auto) (0.6-5.0) # [place] # (Auto) (0.0-1.3) # Eos # (Auto) (0.0-0.8) # Baso # (Auto) (0.0-0.2) # Sodium 138 (135-145) mmol/L Potassium 3.9 (3.5-5.3) mmol/L Chloride 110 D (100-110) mmol/L Carbon Dioxide 20 L (21-32) mmol/L BUN 17 (7-18) mg/dL Creatinine 1.0 (0.70-1.30) mg/dL Est Cr Clr Drug Dosing 47.85 mL/min Estimated GFR (MDRD) > 60 (>60) BUN/Creatinine Ratio 17.0 (9-20) Glucose 98 D (80-116) mg/dL Calcium 8.4 L (8.6-10.2) mg/dL Creatine Kinase (60-160) IU/L CK-MB (CK-2) (0.5-5.0) ng/mL Troponin I 0.372 H* (<0.017-0.056) ng/mL Regulo Results Last 24 Hours: Microbiology 09/03/17 10:25 Occult Blood - Preliminary Stool / Feces - Stool, Liquid Med Orders - Current: Current Medications Amlodipine Besylate (Norvasc) 10 mg PO BEDTIME [facility] Last Admin: 09/03/17 20:38 Dose: 10 mg Aspirin (Ecotrin) 325 mg PO DAILY [facility] Last Admin: 09/03/17 13:06 Dose: 325 mg Benazepril HCl (Lotensin) 20 mg PO BEDTIME [facility] Last Admin: 09/03/17 20:39 Dose: 20 mg Sodium Chloride (Normal Saline) 1,000 mls @ 125 mls/hr IV ASDIRECTED [facility] Last Admin: 09/03/17 12:38 Dose: 125 mls/hr Isosorbide Mononitrate (Imdur) 60 mg PO BEDTIME [facility] Last Admin: 09/03/17 20:41 Dose: 60 mg Metoprolol Succinate (Toprol Xl) 50 mg PO BEDTIME [facility] Last Admin: 09/03/17 20:40 Dose: 50 mg Sodium Chloride (Saline Flush) 10 ml FLUSH ASDIRECTED PRN PRN Reason: Keep Vein Open Last Admin: 09/03/17 09:50 Dose: 10 ml Vancomycin HCl (Vancocin 125 Mg/5 Ml Soln) 125 mg PO QID [facility] Last Admin: 09/03/17 21:10 Dose: 125 mg Discontinued Medications Aspirin (Aspirin) 325 mg PO ONETIME ONE Stop: 09/02/17 21:10 Last Admin: 09/02/17 21:51 Dose: Not Given Aspirin (Aspirin) 324 mg PO ONETIME ONE Stop: 09/02/17 21:53 Last Admin: 09/02/17 21:57 Dose: 324 mg Clopidogrel Bisulfate (Plavix) 600 mg PO ONETIME ONE Stop: 09/03/17 12:47 Last Admin: 09/03/17 13:06 Dose: 600 mg Magnesium Sulfate 2 gm/ Premix 50 mls @ 150 mls/hr IV ONETIME ONE Stop: 09/02/17 22:38 Last Admin: 09/02/17 23:34 Dose: 50 mls/hr Levothyroxine Sodium (Levothyroxine) 175 mcg PO ONETIME STA Stop: 09/02/17 21:18 Last Admin: 09/02/17 22:03 Dose: Not Given Levothyroxine Sodium (Synthroid) Confirm Administered Dose 100 mcg .ROUTE .STK- MED ONE Stop: 09/02/17 21:51 Last Admin: 09/02/17 21:57 Dose: Not Given Levothyroxine Sodium (Levothyroxine) Confirm Administered Dose 75 mcg .ROUTE .STK-MED ONE Stop: 09/02/17 21:51 Last Admin: 09/02/17 21:57 Dose: Not Given Levothyroxine Sodium (Levothyroxine) 75 mcg PO ONETIME ONE Stop: 09/02/17 22:03 Last Admin: 09/02/17 22:03 Dose: 75 mcg Levothyroxine Sodium (Synthroid) 100 mcg PO ONETIME ONE Stop: 09/02/17 22:03 Last Admin: 09/02/17 22:03 Dose: 100 mcg Non-Formulary Medication (Amlodipine Besylate/Benazepril [Amlodipine-Benazepril 10-20 Mg]) 1 cap PO DAILY NATHEN - Exam General: Alert, Oriented HEENT: Pupils Equal, Pupils Reactive, EOMI, Mucous Membr. Moist/[place] Neck: Supple Lungs: Clear to Auscultation, Normal Respiratory Effort Cardiovascular: Regular Rate, Regular Rhythm GI/Abdominal Exam: Normal Bowel Sounds, Soft, Non-Tender, No Organomegaly, No Distention, No Abnormal Bruit, No Mass, Pelvis Stable (Male) Exam: No Hernia, Normal Inspection, Normal Prostate, Circumcised Back Exam: Normal Inspection, Full Range of Motion Extremities: Normal Inspection, Normal Range of Motion, Non-Tender, No Pedal Edema, Normal Capillary Refill Skin: Warm, Dry, Intact Wound/Incisions: Healing Well Neurological: No New Focal Deficit Psy/Mental Status: Alert, Normal Affect, Normal Mood - Problem List & Annotations (1) Diarrhea SNOMED Code(s): 36601435 Code(s): R19.7 - DIARRHEA, UNSPECIFIED Status: Acute Current Visit: Yes Qualifiers: Diarrhea type: presumed infectious Qualified Code(s): A09 - Infectious gastroenteritis and colitis, unspecified (2) SVT (supraventricular tachycardia) SNOMED Code(s): 9657482 Code(s): I47.1 - SUPRAVENTRICULAR TACHYCARDIA Status: Acute Current Visit : Yes (3) CAD (coronary artery disease) SNOMED Code(s): 39655095 Code(s): I25.10 - ATHSCL HEART DISEASE OF [place] CORONARY ARTERY W/O ANG PCTRS Status: Acute Current Visit: Yes Qualifiers: Coronary Disease-Associated Artery/Lesion type: bypass graft (4) CKD (chronic kidney disease) SNOMED Code(s): 349843131 Code(s): N18.9 - CHRONIC KIDNEY DISEASE, UNSPECIFIED Status: Acute Current Visit: Yes Qualifiers: Chronic kidney disease stage: stage 2 (mild) Qualified Code(s): N18.2 - Chronic kidney disease, stage 2 (mild) (5) Hypothyroid SNOMED Code(s): 12200981 Code(s): E03.9 - HYPOTHYROIDISM, UNSPECIFIED Status: Acute Current Visit : Yes Qualifiers: Hypothyroidism type: acquired Qualified Code(s): E03.9 - Hypothyroidism, unspecified (6) HTN (hypertension) SNOMED Code(s): 08271126 Code(s): I10 - ESSENTIAL (PRIMARY) HYPERTENSION Status: Acute Current Visit: Yes Qualifiers: Hypertension type: essential hypertension Qualified Code(s): I10 - Essential (primary) hypertension (7) Obesity SNOMED Code(s): 652423421 Code(s): E66.9 - OBESITY, UNSPECIFIED Status: Acute Current Visit: Yes Qualifiers: Obesity type: due to excess calories (8) HLD (hyperlipidemia) SNOMED Code(s): 08627509 Code(s): E78.5 - HYPERLIPIDEMIA, UNSPECIFIED Status: Acute Current Visit : Yes Qualifiers: Hyperlipidemia type: unspecified Qualified Code(s): E78.5 - Hyperlipidemia , unspecified - Problem List Review Problem List Initiated/Reviewed/Updated: Yes - My Orders Last 24 Hours: My Active Orders 09/03/17 09:00 Precautions [COMM] Routine 09/03/17 10:25 CDIFF TOXIN A+B GROUP [OP] Stat CULTURE-STOOL [MREF] Routine OCCULT BLOOD SCREEN [OP] Routine OVA AND PARASITES [MREF] Routine WBC, Stool Send Out [LACTOFERRIN, FECAL BY CASTILLO] [REF] Stat 09/03/17 13:00 Aspirin [Ecotrin] 325 mg PO DAILY 09/03/17 21:00 Benazepril [Lotensin] 20 mg PO BEDTIME amLODIPine [Norvasc] 10 mg PO BEDTIME - Plan Plan:: I had a discussion with him and his [id number]. Patient wants to go back to his home because he has friends here. He feels more comfortable. I believe he can go back independent. For the diarrhea about treating for 10 days with oral vancomycin. We agreed that because of his grief reaction after his and depression small dose of an antidepressant e.g. Celexa 10 mg a day will be sent to the pharmacy. I've advised him to see Dr. Haji the next 7- 10 days. Since his troponin has improved and he has no chest pain I feel that we can just maximize treatment medically for coronary disease. Continue aspirin , statin and and control his hypertension as well. I will discharge him today
[2017-09-04] MEDS: Vancomycin 125 MG/5 ML ML Oral Solution PO SCH (08:52)
[2017-09-04] MEDS: Aspirin 325 MG Tab.EC PO SCH (08:52)
--- NOTE | 2017-09-05 01:08 | DISCH ---
DISCHARGE DATE: 09/04/2017 REASON FOR ADMISSION: 1. Supraventricular tachycardia. 2. Diarrhea. 3. Weakness. 4. Coronary artery disease. 5. Hypertension. 6. Hypothyroidism. 7. Chronic kidney disease. 8. Hyperlipidemia. DISCHARGE DIAGNOSES: 1. Clostridium difficile colitis. 2. Supraventricular tachycardia. 3. Coronary artery disease. 4. Chronic kidney disease. 5. 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 6. Hypertension. 7. Obesity. 8. Depression, new diagnosis. 9. Hyperlipidemia. CONSULTATIONS: None. PROCEDURES: None. BRIEF HISTORY AND HOSPITAL COURSE: An 87-year-old male, tennille, who came in because of fall and weakness at home, was found to be in SVT. This was treated successfully with adenosine. He has a history of CAD with an angiogram in August of last year. He had no chest pain. He had initially a normal troponin that kirill and also came down by the day of discharge, but he remained asymptomatic. He complained of diarrhea on and off for about a month and has been treated with Flagyl. We elected to treat him empirically with vancomycin. He did very well. He passed physical therapy and was ready to go back home on the . However, I did discuss with him and the family. Because of his recent passing of his and grief and depression, I started him on Celexa 10 mg a day. I discharged him home on oral vancomycin for 10 days and Celexa 10 mg a day. I discontinued levothyroxine, but will continue with his other home medications of benazepril, metoprolol, isosorbide mononitrate, aspirin, and amlodipine. FOLLOWUP: Will see Dr. Goldstein in 7 to 10 days. I spent more than 35 minutes in discharge of the patient. /[id number] HENRY/JON
== END 2017-09-04 10:40 | disposition home or self-care (01) | DRG 309 ==
LOC: FB.ED 19:51 → FB.MS 21:47 → OBSVTOIN 09-03 08:50
PROVIDERS: ADMIT Emergency Medicine; ATTEND Family Medicine
DX: I47.1 Supraventricular tachycardia (principal); A04.72 Enterocolitis due to Clostridium difficile, not specified as recurrent; E86.0 Dehydration; E83.42 Hypomagnesemia; N18.2 Chronic kidney disease, stage 2 (mild); E03.9 Hypothyroidism, unspecified; A09 Infectious gastroenteritis and colitis, unspecified; I12.9 Hypertensive chronic kidney disease with stage 1 through stage 4 chronic kidney disease, or unspecified chronic kidney disease; W19.XXXA Unspecified fall, initial encounter; Y92.009 Unspecified place in unspecified non-institutional (private) residence as the place of occurrence of the external cause; E78.5 Hyperlipidemia, unspecified; F43.20 Adjustment disorder, unspecified; I25.10 Atherosclerotic heart disease of native coronary artery without angina pectoris; I25.2 Old myocardial infarction; Z95.1 Presence of aortocoronary bypass graft; Z95.5 Presence of coronary angioplasty implant and graft; Z85.46 Personal history of malignant neoplasm of prostate; Z79.2 Long term (current) use of antibiotics; Z79.82 Long term (current) use of aspirin; E66.09 Other obesity due to excess calories; Z68.27 Body mass index [BMI] 27.0-27.9, adult
CPT/HCPCS: 36415 ×2; 71010; 80048 ×2; 81003; 83605; 83735 ×2; 83880; 84443; 84484 ×2; 85025 ×2; 85610; 87040; 93005 ×2; 96360; 96361; 99285; A9270 ×3; J3475; J7040 ×2; J7050; 82270; 82550; 82553; 83630; 87015; 87045; 87046; 87177; 87209; 87324; 87899; 93010; 96365; 96366; 97165-GO; G0378

== ENCOUNTER 2019-12-07 23:49 | Emergency (ER) | payer MEDICARE, OTHER ==
[2019-12-08] MEDS ORDERED: Meclizine 25 MG Tab PO ONE (00:16)
[2019-12-08] MEDS ORDERED: Scopolamine 1.5 MG Transdermal Patch TOP ONE (00:17)
[2019-12-08 00:26] VITALS: BP 152/68; PULSE 55
--- NOTE | 2019-12-08 00:36 | EDM.PDOC ---
ED HPI GENERAL MEDICAL PROBLEM - General Chief Complaint: General Stated Complaint: DIZZYNESS Time Seen by Provider: 12/07/19 23:50 Source of Information: Reports: RN Notes Reviewed History Limitations: Reports: No Limitations - History of Present Illness INITIAL COMMENTS - FREE TEXT/NARRATIVE: came in with dizziness As long as he sits still no cncernn Once he gets to move ,, he feels dizziness no nausea or vomitng noted pt has had a history of multiple falls associated with the dizziiness Onset: Sudden Onset Date: 12/08/19 Location: Reports: Head, Neck Improves with: Reports: Rest Worsens with: Reports: Movement - Related Data Allergies Allergy/AdvReac Type Severity Reaction Status Date / Time No Known Allergies Allergy Verified 12/08/19 00:09 Home Meds: Home Meds Isosorbide Mononitrate [Isosorbide Mononitrate ER] 30 mg PO BID 09/02/17 [ History] Citalopram Hydrobromide [Celexa] 10 mg PO DAILY #90 tablet 09/04/17 [Rx] Levothyroxine 175 mcg PO DAILY 07/30/18 [History] Nitroglycerin [Nitrostat] 0.4 mg SL ASDIRECTED PRN 07/30/18 [History] Apixaban [Eliquis] 2.5 mg PO BID #14 tablet 07/31/18 [Rx] Metoprolol Succinate [Toprol XL 100mg] 100 mg PO BEDTIME 5 Days #30 tab.er 07/31 [Rx] amLODIPine [Norvasc] 5 mg PO DAILY 12/08/19 [History] Past Medical History HEENT History: Reports: Cataract Other HEENT History: wears glasses Cardiovascular History: Reports: [place] Other Cardiovascular History: Quadruple Bypass Respiratory History: Reports: None Gastrointestinal History: Reports: None Other Gastrointestinal History: States history of colon cancer, treated. Genitourinary History: Reports: Prostate Disorder Psychiatric History: Reports: Depression Endocrine/Metabolic History: Reports: Other (See Below) Other Endocrine/Metabolic History: takes thyroid pill Oncologic (Cancer) History: Reports: Prostate - Infectious Disease History Infectious Disease History: Reports: Chicken Pox, Measles, Mumps - Past Surgical History HEENT Surgical History: Reports: Cataract Surgery Social & Family History - Family History Family Medical History: Noncontributory - Caffeine Use Caffeine Use: Reports: Coffee Other Caffeine Use: 2-3 cups/day ED ROS GENERAL - Review of Systems Review Of Systems: See Below Constitutional: Reports: No Symptoms, Weakness, Diaphoresis HEENT: Reports: No Symptoms Respiratory: Reports: No Symptoms Cardiovascular: Reports: No Symptoms Endocrine: Reports: No Symptoms Neurological: Reports: Dizziness, Tingling, Difficulty Walking, Weakness, Gait Disturbance Psychiatric: Reports: Anxiety Hematologic/Lymphatic: Reports: No Symptoms Immunologic: Reports: No Symptoms ED EXAM, GENERAL - Physical Exam Exam: See Below Exam Limited By: No Limitations General Appearance: Alert, WD/WN, No Apparent Distress Eye Exam: Bilateral Eye: EOMI Ears: Normal External Exam Ear Exam: Bilateral Ear: Auricle Normal Nose: Normal Inspection, Normal Mucosa Throat/Mouth: Normal Inspection Head: Atraumatic, Normocephalic Neck: Supple, Non-Tender, Full Range of Motion Respiratory/Chest: Lungs Clear, Normal Breath Sounds Cardiovascular: Regular Rate, Rhythm, No Edema, Irregularly Irregular GI/Abdominal: Soft, Non-Tender Extremities: Normal Inspection, Normal Range of Motion Neurological: Alert, Oriented, CN II-XII Intact, Normal Cognition, Abnormal Gait , Abnormal Reflexes Psychiatric: Normal Affect Skin Exam: Warm Course - Vital Signs Last Recorded V/S: Last Vital Signs Temp 36.4 C 12/07/19 23:50 Pulse 55 L 12/07/19 23:50 Resp 14 12/07/19 23:50 BP 152/68 H 12/07/19 23:50 Pulse Ox 98 12/07/19 23:50 - Orders/Labs/Meds Orders: Active Orders 24 hr Category Date Time Status Head wo Cont [CT] Stat Exams 12/08/19 00:18 Ordered Meds: Medications Discontinued Medications Generic Name Dose Route Start Last Admin Trade Name Aga PRN Reason Stop Dose Admin Meclizine HCl 50 mg 12/08/19 00:16 12/08/19 00:21 Antivert PO 12/08/19 00:17 50 mg ONETIME ONE Administration Scopolamine 1.5 mg 12/08/19 00:17 12/08/19 00:21 Transderm-Scop TOP 12/08/19 00:18 1.5 mg ONETIME ONE Administration - Re-Assessments/Exams Free Text/Narrative Re-Assessment/Exam: 12/08/19 01:52 ekg : NSR Head CT; negative Departure - Departure Time of Disposition: 01:52 Disposition: Home, Self-Care 01 Condition: Good Clinical Impression: BPPV (benign paroxysmal positional vertigo), Falls frequently - Discharge Information *PRESCRIPTION DRUG MONITORING PROGRAM REVIEWED*: Not Applicable *COPY OF PRESCRIPTION DRUG MONITORING REPORT IN PATIENT YOUSIF: Not Applicable Referrals: Kel Goldstein MD [Primary Care Provider] - Forms: ED Department Discharge Additional Instructions: 1) Use meclizine as needed if dizziness happens again 2)Keep patch on for 3 days then slowly take it off 3) Make apt to see your doctor as needed Sepsis Event Note - Focused Exam Vital Signs: Vital Signs Temp Pulse Resp BP Pulse Ox 12/07/19 23:50 36.4 C 55 L 14 152/68 H 98 Date Exam was Performed: 12/08/19 Time Exam was Performed: 01:45 - My Orders Last 24 Hours: My Active Orders 12/08/19 00:18 Head wo Cont [CT] Stat - Assessment/Plan Last 24 Hours: My Active Orders 12/08/19 00:18 Head wo Cont [CT] Stat
== END 2019-12-08 02:10 | disposition home or self-care (01) ==
LOC: FB.ED 23:49
DX: H81.10 Benign paroxysmal vertigo, unspecified ear (principal); R29.6 Repeated falls; I25.2 Old myocardial infarction; Z79.899 Other long term (current) drug therapy; Z79.01 Long term (current) use of anticoagulants; Z85.038 Personal history of other malignant neoplasm of large intestine
CPT/HCPCS: 70450; 99283; 99284-25; A9270-GY